=== PATIENT | male | born 1955 | race Caucasian/White ===

== ENCOUNTER 2017-12-15 13:01 | Emergency (ER) | payer OTHER ==
[~2017-12-15] VITALS: Ht 175.3 cm; Wt 86.2 kg
[2017-12-15 13:11] VITALS: Ht 175.3 cm; Wt 86.2 kg
[2017-12-15 13:46] LABS: PLATELET COUNT 251 x10^3mcL (130-400); RED CELL DISTRIBUTION WIDTH 13.1 % (11.5-14.5)
[2017-12-15 13:58] LABS: CALCIUM 9.8 mg/dL (8.5-10.1); CARBON DIOXIDE 25.7 mmol/L (21-32); CHLORIDE SERUM 102 mmol/L (98-107); CREATININE SERUM 1.1 mg/dL (0.7-1.3); GFR1 > 60 mL/min; GLUCOSE SERUM 110 mg/dL (74-106); SODIUM SERUM 135 mmol/L (136-145)
[2017-12-15 14:31] LABS: ERYTHROCYTE SED RATE 12 mm/hr (0-20)
[2017-12-15] MEDS ORDERED: LIPITOR80 MG PO (14:34)
[2017-12-15] MEDS ORDERED: GLU850 PO (14:34)
[2017-12-15] MEDS ORDERED: GLUCOTROL5 MG PO (14:35)
[2017-12-15] MEDS ORDERED: LISINOPRIL5 MG PO (14:35)
[2017-12-15 15:54] VITALS: BP 116/74
== END 2017-12-15 15:55 | disposition short-term general hospital (02) ==
LOC: ED 13:01 → DU 14:46 → ED 14:46
PROVIDERS: Emergency Medicine
DX: I63.9 Cerebral infarction, unspecified (principal); I10 Essential (primary) hypertension; E11.9 Type 2 diabetes mellitus without complications
CPT/HCPCS: 36415; J7030

== ENCOUNTER 2018-08-03 12:55 | Emergency (ER) | payer OTHER ==
[~2018-08-03] VITALS: Ht 165.1 cm; Wt 88.5 kg
[~2018-08-03 12:55] MED LIST: GLU850 PO; GLUCOTROL5 MG PO; LIPITOR80 MG PO; LISINOPRIL5 MG PO
[2018-08-03 13:01] VITALS: BP 144/80; Ht 165.1 cm; Wt 88.5 kg
== END 2018-08-03 13:52 | disposition home or self-care (01) ==
LOC: ED 12:55
DX: H11.31 Conjunctival hemorrhage, right eye (principal); Z88.0 Allergy status to penicillin; I10 Essential (primary) hypertension; E11.9 Type 2 diabetes mellitus without complications; E78.00 Pure hypercholesterolemia, unspecified